=== PATIENT | male | born 1985 | race Caucasian/White ===

== ENCOUNTER 2020-12-18 09:10 | Emergency (ER) | payer OTHER ==
--- NOTE | 2020-12-18 09:37 | EDPHYS ---
Physician Documentation [facility] Name: Juanjo Blackwood Age: 35 yrs Sex: Male : 1985 Arrival Date: 12/18/2020 Time: 09:13 Bed 24 Private MD: ED Physician Fam Aragon HPI: 12/18 09:33 This 35 yrs old Male presents to ER via Ambulatory with complaints of kb Toothache. 09:33 The patient presents with pain, redness, swelling. The problem is located in the upper kb left second molar (#15). Onset: The symptoms/episode began/occurred 1 month(s) ago, and became worse 3 hour(s) ago. Duration: The symptoms are intermittent. Modifying factors: The symptoms are alleviated by nothing, the symptoms are aggravated by nothing. Associated signs and symptoms: Pertinent positives: pain, redness in area, swelling. Severity of symptoms: At their worst the symptoms were moderate, in the emergency department the symptoms are unchanged. The patient has experienced similar episodes in the past. The patient has not recently seen a physician. Pt reports toothache that started 3 weeks to a month ago. States the pain has been intermittent, but became worse and constant at approx 0630 today. Historical: - Allergies: 09:19 NKDA; tw2 - Home Meds: 09:19 None [Active]; tw2 - PMHx: 09:19 chest pain; MRSA; tw2 09:20 Hypertensive disorder; tw2 09:28 Myocardial infarction; tw2 - PSHx: 09:19 None; tw2 - Immunization history:: Client reports having NOT received the Covid vaccine. - Social history:: Smoking status: Patient reports the use of cigarette tobacco products, 3 or 4 cigarettes . ROS: 09:31 Constitutional: Negative for fever, chills, and weight loss. kb 09:31 ENT: Positive for Teeth pain 09:31 All other systems are negative. Exam: 09:31 Constitutional: This is a well developed, well nourished patient who is awake, alert, kb and in no acute distress. Head/Face: Normocephalic, atraumatic. Respiratory: Respirations even and unlabored. No increased work of breathing, no retractions or nasal flaring. Skin: Warm, dry with normal turgor. Normal color. MS/ Extremity: Pulses equal, no cyanosis. Neurovascular intact. Full, normal range of motion. Neuro: Awake and alert, GCS 15, oriented to person, place, time, and situation. Moves all extremities. Normal gait. Psych: Awake, alert, with orientation to person, place and time. Behavior, mood, and affect are within normal limits. 09:31 ENT: Dental exam: pain, that is moderate, specifically in the upper left second molar (#15). Vital Signs: 09:18 BP 161 / 130; Pulse 92; Resp 17; Temp 97.9(TE); Pulse Ox 99% on R/A; Pain 9/10; tw2 09:28 BP 158 / 108; Pulse 76; Resp 20; Temp 98.9; Pulse Ox 100% on R/A; jw6 MDM: 09:22 Patient medically screened. kb 09:27 Data reviewed: vital signs, nurses notes. Data interpreted: Pulse oximetry: on room air kb is 99 %. Interpretation: normal. Counseling: I had a detailed discussion with the patient and/or guardian regarding: the historical points, exam findings, and any diagnostic results supporting the discharge/admit diagnosis, the need for outpatient follow up, a dentist, to return to the emergency department if symptoms worsen or persist or if there are any questions or concerns that arise at home. Special discussion: I have referred the patient to see his PCP for further evaluation of high blood pressure. Administered Medications: 09:29 CANCELLED (Physician Discretion): Ketorolac 30 mg IVP once kb 09:33 Drug: Ketorolac 30 mg Route: IM; Site: left deltoid; jw6 09:33 Follow up: Response: No adverse reaction jw6 Disposition: 12/19 08:25 Co-signature as Attending Physician, Fam Aragon MD I agree with the assessment and rn plan of care. Attestation: The patient's history, exam findings, diagnostics, and a summary of any interventions or procedures was reviewed in detail with Brandi LOW. Disposition Summary: 12/18/20 09:36 Discharge Ordered Location: Home kb Condition: Stable kb Diagnosis - Other specified disorders of teeth and supporting structures kb Followup: kb - With: Emergency Department - When: As needed - Reason: Worsening of condition Followup: kb - With: Private Physician - When: 2 - 3 days - Reason: Recheck today's complaints, Continuance of care, Re-evaluation by your physician Discharge Instructions: - Dental Pain, [id number] kb - Dental Abscess, [id number] kb - Discharge Summary Sheet tw2 Forms: - Medication Reconciliation Form kb - Work release form tw2 - Thank You Letter kb - Antibiotic Education kb - Prescription Opioid Use kb Prescriptions: - Augmentin 875-125 mg Oral Tablet - take 1 tablet by ORAL route every 12 hours for 10 days; 20 tablet; Refills: 0, kb Product Selection Permitted Signatures: Brandi Inman, SHAKIR-C SHAKIR-Fam John MD MD rn Eda Alston RN RN tw2 Velia Machado jw6 Corrections: (The following items were deleted from the chart) 12/18 09:29 09:27 Ketorolac 30 mg IVP once ordered. kb kb
--- NOTE | 2020-12-18 09:37 | ER ---
Nurse's Notes [facility] Name: Juanjo Blackwood Age: 35 yrs Sex: Male : 1985 Arrival Date: 12/18/2020 Time: 09:13 Bed 24 Private MD: Diagnosis: Other specified disorders of teeth and supporting structures Presentation: 12/18 09:18 Chief complaint: Patient states: i woke up with my tooth hurting . top left side. its tw2 probably infected. it has bothered me before. Coronavirus screen: At this time, the client does not indicate any symptoms associated with coronavirus-19. Ebola Screen: Patient denies travel to an Ebola-affected area in the 21 days before illness onset. Initial Sepsis Screen: Does the patient meet any 2 criteria? No. Patient's initial sepsis screen is negative. Does the patient have a suspected source of infection? No. Patient's initial sepsis screen is negative. Risk Assessment: Do you want to hurt yourself or someone else? Patient reports no desire to harm self or others. Onset of symptoms was December 18, 2020. 09:18 Method Of Arrival: Ambulatory tw2 09:29 Acuity: FELTON 3 tw2 Triage Assessment: 09:21 General: Appears in no apparent distress. uncomfortable, Behavior is calm, cooperative, tw2 appropriate for age. Pain: Complains of pain in left buccal mucosa. EENT: Reports pain in left buccal mucosa. Historical: - Allergies: 09:19 NKDA; tw2 - Home Meds: 09:19 None [Active]; tw2 - PMHx: 09:19 chest pain; MRSA; tw2 09:20 Hypertensive disorder; tw2 09:28 Myocardial infarction; tw2 - PSHx: 09:19 None; tw2 - Immunization history:: Client reports having NOT received the Covid vaccine. - Social history:: Smoking status: Patient reports the use of cigarette tobacco products, 3 or 4 cigarettes . Screenin:24 Abuse screen: Denies threats or abuse. Nutritional screening: No deficits noted. tw2 Tuberculosis screening: No symptoms or risk factors identified. Fall Risk None identified. Assessment: 09:28 General: Appears in no apparent distress. Behavior is calm, cooperative. Pain: jw6 Complains of pain in upper left second molar and upper left third molar Pain does not radiate. Pain currently is 10 out of 10 on a pain scale. Neuro: No deficits noted. Cardiovascular: Reports. Respiratory: No deficits noted. GI: No signs and/or symptoms were reported involving the gastrointestinal system. : No signs and/or symptoms were reported regarding the genitourinary system. EENT: No deficits noted. Derm: No deficits noted. Musculoskeletal: No deficits noted. Vital Signs: 09:18 BP 161 / 130; Pulse 92; Resp 17; Temp 97.9(TE); Pulse Ox 99% on R/A; Pain 9/10; tw2 09:28 BP 158 / 108; Pulse 76; Resp 20; Temp 98.9; Pulse Ox 100% on R/A; jw6 ED Course: 09:13 Patient arrived in ED. mr 09:19 Triage completed. tw2 09:21 Arm band placed on. tw2 09:21 Bed in low position. Call light in reach. tw2 09:22 Brandi Inman FNP-C is [facility]. kb 09:22 Fam Aragon MD is Attending Physician. kb 09:27 Velia Machado is Primary Nurse. jw6 09:28 No provider procedures requiring assistance completed. Patient did not have IV access jw6 during this emergency room visit. Administered Medications: 09:29 CANCELLED (Physician Discretion): Ketorolac 30 mg IVP once kb 09:33 Drug: Ketorolac 30 mg Route: IM; Site: left deltoid; jw6 09:33 Follow up: Response: No adverse reaction jw6 Outcome: 09:36 Discharge ordered by . kb 09:51 Discharged to home ambulatory. jw6 09:51 Condition: good 09:51 Discharge instructions given to patient, Instructed on discharge instructions, follow up and referral plans. medication usage, Demonstrated understanding of instructions, follow-up care, medications, Prescriptions given X 1. 09:52 Patient left the ED. jw6 Signatures: Brandi Inman FNP-C FNP-Dee RenteriaaSamantha Tara, RN RN tw2 Velia Machado jw6 Corrections: (The following items were deleted from the chart) 09:29 09:18 Acuity: FELTON 4 tw2 tw2
[2020-12-18] MEDS ORDERED: KETOROLAC 30 MG/ML INJ ONE (09:57)
[2020-12-18 09:58] VITALS: BP 158/108; TEMP 98.9; O2SAT 100
== END 2020-12-18 09:52 | disposition home or self-care (01) ==
LOC: ER 09:10
DX: K08.89 Other specified disorders of teeth and supporting structures (principal); I10 Essential (primary) hypertension; F17.210 Nicotine dependence, cigarettes, uncomplicated
CPT/HCPCS: 96372; 99283